=== PATIENT | female | born 1995 | race African-American/Black ===

== ENCOUNTER 2020-02-05 08:34 | Emergency (ER) | payer OTHER ==
[~2020-02-05] VITALS: Ht 160 cm; Wt 59.0 kg
--- OUTSIDE RECORDS SUMMARY | 2020-02-05 08:37 | XMS REPORT ---
Author Author Admin, [place] Organization Unknown Address Unknown Phone Unavailable Problems No Known Problems ENCOUNTERS Date Type Provider Location Encounter Diagnosis - Ambulatory Encounter Heidy Haines [facility] Contact Center UNK VITAL SIGNS No Information Available Allergies No Known Allergy Information REASON FOR REFERRAL No Information Available RESULTS No Information Available HISTORY OF IMMUNIZATIONS No Information Available Medications No Known Medication Information SOCIAL HISTORY Date Observation Value Provider time of call 02/04/2020 9:29 AM Mahnaz Haines FUNCTIONAL STATUS No Information Available MENTAL STATUS No Information Available MEDICAL EQUIPMENT No Information Available FAMILY HISTORY No Information Available INSURANCE PROVIDERS No Information Available ADVANCE DIRECTIVES No Information Available TREATMENT PLAN No Information Available HISTORY OF PROCEDURES No Information Available GOALS No Information Available HEALTH CONCERNS No Information Available
--- NOTE | 2020-02-05 09:37 | NUR ---
EKG obtained, CM applied, piv inserted and blood specimens obtained. Patient resting quietly, awaiting further orders/disposition.
[2020-02-05 09:45] VITALS: BP 129/94
[2020-02-05 09:47] LABS: INFLUENZAE A&B ANTIGEN (RAPID) NEGATIVE (NEGATIVE)
== END 2020-02-05 09:51 | disposition home or self-care (01) ==
LOC: ER 08:34
DX: R50.9 Fever, unspecified (principal); R05 Cough; B34.9 Viral infection, unspecified
CPT/HCPCS: 87400; 93005; 94760; 99284

== ENCOUNTER 2021-09-11 00:39 | Emergency (ER) | payer OTHER ==
[~2021-09-11] VITALS: Ht 160 cm; Wt 63.0 kg
[2021-09-11] MEDS ORDERED: 12 HOUR NASAL R15 ML (01:10)
== END 2021-09-11 01:44 | disposition home or self-care (01) ==
LOC: FSED 01:05
DX: R04.0 Epistaxis (principal)
CPT/HCPCS: 99282

== ENCOUNTER 2022-12-11 11:50 | Emergency (ER) | payer OTHER ==
[~2022-12-11] VITALS: Ht 160 cm; Wt 51.3 kg
[~2022-12-11 11:50] MED LIST: 12 HOUR NASAL R15 ML; BACTRIM DS TAB1 EACH PO; ONDANSETRON ODT4 MG PO
[2022-12-11] MEDS ORDERED: SODIUM CHLORIDE 0.9% 1000ML 1,000 ML IV ONE (13:15)
[2022-12-11 13:22] LABS: BASOPHILS % 0.6 % (0.0-1.0); EOSINOPHILS % 0.2 % (0.0-6.0); HEMATOCRIT 37.8 % (34.2-44.1); HEMOGLOBIN 11.1 g/dL (12.0-16.0); LYMPHOCYTES # (AUTO) 1.7 (1.0-3.2); LYMPHOCYTES % 26.6 % (18.0-39.1); MEAN CORPUSCULAR HEMOGLOBIN 27.2 pg (28-32); MEAN CORPUSCULAR HGB CONC 29.4 g/dL (31-35); MEAN CORPUSCULAR VOLUME 92.6 fL (81-99); MONOCYTES # (AUTO) 0.6 (0.2-0.8); MONOCYTES % 9.9 % (4.4-11.3); NEUTROPHILS # (AUTO) 3.9 (2.1-6.9); NEUTROPHILS % 62.5 % (38.7-80.0); PLATELET COUNT 238 x10e3/uL (140-360); RED BLOOD COUNT 4.08 x10e6/uL (3.6-5.1); RED CELL DISTRIBUTION WIDTH 14.6 % (11.7-14.4)
[2022-12-11] MEDS ORDERED: METOCLOPRAMIDE HCL 10 MG/2ML VIAL IV ONE (13:30)
[2022-12-11 13:46] LABS: ALBUMIN 4.1 g/dL (3.5-5.0); ALBUMIN/GLOBULIN RATIO 1.2 (0.8-2.0); ANION GAP 15.8 mmol/L (8-16); CALCIUM 9.3 mg/dL (8.4-10.2); CREATININE, SERUM 0.75 mg/dL (0.57-1.11); POTASSIUM 3.8 mmol/L (3.5-5.1)
[2022-12-11] MEDS ORDERED: REGLAN10 MG PO (14:08)
[2022-12-11] MEDS ORDERED: PEPCID20 MG PO (14:08)
== END 2022-12-11 14:44 | disposition home or self-care (01) ==
LOC: ER 12:04
DX: R68.81 Early satiety (principal); R63.4 Abnormal weight loss; K21.9 Gastro-esophageal reflux disease without esophagitis; R11.2 Nausea with vomiting, unspecified
CPT/HCPCS: 36415; 80053; 85025; 99283; J2765; J7030